=== PATIENT | female | born 1980 | race Two or more races ===

== ENCOUNTER 2016-09-26 12:00 | Emergency (ER) | payer MEDICAID ==
[~2016-09-26] VITALS: Ht 160 cm; Wt 72.6 kg
[2016-09-26 12:58] LABS: Basophils # (auto) 0 uL; Basophils % (auto) 0.6 % (0.0-2.0); Eosinophils # (auto) 0.1 uL; Hematocrit 39.1 % (36.0-46.0); Hemoglobin 13.4 g/dL (12.2-16.2); Lymphocytes # (auto) 2.1 uL; Mean Corpuscular Hemoglobin 29.5 pg (28.0-32.0); Mean Corpuscular Hgb Conc. 34.2 g/dL (32.0-36.0); Mean Corpuscular Volume 86.4 fL (80.0-100.0); Monocytes # (auto) 0.5 uL; Monocytes % (auto) 8.3 % (0.0-12.0); Neutrophils # (auto) 3.5 uL; Neutrophils % (auto) 56.1 % (37.0-80.0); Platelet Count (auto) 324 10^3/uL (140-450); Red Cell Distribution Width 13.1 % (11.6-16.0); White Blood Cell 6.3 10^3/uL (4.4-10.8)
[2016-09-26 13:14] VITALS: BP 105/66
[2016-09-26] MEDS ORDERED: HYDROcodone-ACET 5/325MG TAB PO ONE (13:15)
[2016-09-26 13:18] LABS: BUN/Creatinine Ratio 9.3; Calcium 8.5 mg/dL (8.5-10.1)
[2016-09-26 13:21] LABS: Bilirubin, Total 0.2 mg/dL (0.2-1.0); Total Protein 7.8 g/dL (6.4-8.2)
[2016-09-26 13:34] LABS: Urine Bilirubin Negative (Negative); Urine Blood Negative /uL (Negative); Urine Color Yellow (Yellow); Urine Glucose Normal (Normal); Urine Ketone Negative (Negative); Urine Nitrite Negative (Negative); Urine RBC <1 /hpf (0 - 4); Urine Squamous Epithelial Cell FEW /hpf (<5); Urine Urobilinogen Normal (Negative)
== END 2016-09-26 14:51 | disposition home or self-care (01) ==
LOC: ER 12:07
DX: N93.9 Abnormal uterine and vaginal bleeding, unspecified (principal); Z87.440 Personal history of urinary (tract) infections
CPT/HCPCS: 36415; 80053; 81001; 85025

== ENCOUNTER 2016-11-07 10:01 | Emergency (ER) | payer MEDICAID ==
[~2016-11-07] VITALS: Ht 157.5 cm; Wt 92.5 kg
[2016-11-07 10:22] VITALS: BP 140/102
[2016-11-07] MEDS ORDERED: KETOROLAC TROMETH 60MG/2ML VIAL IM ONE (11:30)
== END 2016-11-07 12:30 | disposition home or self-care (01) ==
LOC: ER 10:05
DX: G89.21 Chronic pain due to trauma (principal); M62.838 Other muscle spasm; Z87.440 Personal history of urinary (tract) infections
CPT/HCPCS: 96372; 99283; J1885

== ENCOUNTER 2017-08-05 15:27 | Emergency (ER) | payer MEDICAID ==
[~2017-08-05] VITALS: Ht 157.5 cm; Wt 89.4 kg
[2017-08-05 16:04] VITALS: BP 139/79
== END 2017-08-05 22:47 | disposition left against medical advice (07) ==
LOC: ER 15:32
DX: S33.5XXA Sprain of ligaments of lumbar spine, initial encounter (principal); J00 Acute nasopharyngitis [common cold]; X58.XXXA Exposure to other specified factors, initial encounter; Y93.89 Activity, other specified; Y92.89 Other specified places as the place of occurrence of the external cause; Y99.8 Other external cause status

== ENCOUNTER 2024-06-02 12:54 | Emergency (ER) | payer MEDICAID ==
[~2024-06-02] VITALS: Ht 160 cm; Wt 90.9 kg
[2024-06-02 12:55] VITALS: BP 147/56; RESP 18; O2SAT 98
[2024-06-02 13:40] LABS: Basophils # (auto) 0 10 ^3/uL (0-0.2); Basophils % (auto) 0.6 % (0.0-2.0); Eosinophils # (auto) 0.1 10 ^3/uL (0-0.8); Eosinophils % (auto) 2.1 % (0.0-7.0); Hematocrit 39.7 % (36.0-46.0); Hemoglobin 13.6 g/dL (12.2-16.2); Lymphocytes # (auto) 1.9 10 ^3/uL (0.4-5.4); Lymphocytes % (auto) 29.1 % (10.0-50.0); Mean Corpuscular Hemoglobin 30.8 pg (28.0-32.0); Mean Corpuscular Hgb Conc. 34.1 g/dL (32.0-36.0); Mean Corpuscular Volume 90.2 fL (80.0-100.0); Monocytes # (auto) 0.8 10 ^3/uL (0-1.3); Monocytes % (auto) 12.8 % (0.0-12.0); Neutrophils # (auto) 3.6 10 ^3/uL (1.6-8.6); Neutrophils % (auto) 55.4 % (37.0-80.0); Nucleated Red Blood Cells % 0.1 %; Platelet Count (auto) 278 10^3/uL (140-450); Red Blood Cells 4.41 10^6/uL (4.0-5.20); Red Cell Distribution Width 13.4 % (11.8-14.3); White Blood Cell 6.5 10^3/uL (4.4-10.8)
[2024-06-02 13:56] LABS: Alanine Aminotransferase 88 U/L (7-40); Albumin 4.6 g/dL (3.2-4.8); Alkaline Phosphatase 71 U/L (46-116); Anion Gap 5 (5-15); Aspartate Aminotransferase 45 U/L (13-40); BUN/Creatinine Ratio 14.5 (10.0-20.0); Bilirubin, Total 0.4 mg/dL (0.2-1.0); Blood Urea Nitrogen 11 mg/dL (9-23); Calcium 9.7 mg/dL (8.7-10.4); Carbon Dioxide 33 mmol/L (20-31); Chloride 105 mmol/L (98-107); Glucose 94 mg/dL (74-106); Magnesium 1.9 mg/dL (1.6-2.6); Potassium 3.7 mmol/L (3.5-5.1); Sodium 143 mmol/L (136-145); Total Protein 7.3 g/dL (5.7-8.2)
[2024-06-02 14:04] LABS: INR 0.99 (0.9-1.15); Partial Thromboplastin Time 26.5 SEC (24.5-34.5); Prothrombin Time 10.5 sec (9.3-11.8)
[2024-06-02] MEDS ORDERED: HYDROcodone-ACET 5/325MG TAB PO PRN (14:45)
[2024-06-02] MEDS ORDERED: ACETAMINOPHEN 325 MG TAB PO PRN (14:45)
[2024-06-02] MEDS ORDERED: HYDROmorphone HCL 2 MG/ML VL/or syr IV PRN (14:45)
[2024-06-02] MEDS ORDERED: NITROGLYCERIN 0.4 MG SL TAB SL PRN (14:45)
[2024-06-02] MEDS ORDERED: ONDANSETRON HCL 4 MG/2 ML VIAL IV PRN (14:45)
[2024-06-02] MEDS ORDERED: MORPHINE SULFATE INJ 2 MG/ml SYRG IV PRN (14:45)
[2024-06-02] MEDS ORDERED: DOCUSATE SOD 100 MG CAP PO PRN (14:45)
[2024-06-02 15:58] VITALS: PULSE 77
[2024-06-02] MEDS ORDERED: SODIUM CHLOR 0.9% PF (SALINE LOCK) 10ML VIAL/SYR IV SCH (22:00)
[2024-06-03] MEDS ORDERED: ENOXAPARIN SOD 40 MG/0.4 ML SYRINGE SC SCH (10:00)
== END 2024-06-02 16:49 | disposition left against medical advice (07) ==
LOC: ER 12:54 → EDBD 12:54 → ER 16:49
DX: R07.89 Other chest pain (principal); R53.1 Weakness; R20.0 Anesthesia of skin; I10 Essential (primary) hypertension; Z98.890 Other specified postprocedural states
CPT/HCPCS: 36415; 70450; 71045; 72131; 80053; 83735; 84484; 85025; 85610; 85730; 93005

== ENCOUNTER 2024-06-02 23:35 | Emergency (ER) | payer MEDICAID ==
[~2024-06-02] VITALS: Ht 157.5 cm; Wt 101.0 kg
[2024-06-03 03:30] VITALS: BP 136/80; PULSE 87; RESP 18; TEMP 98.7; O2SAT 99
[2024-06-03] MEDS: HYDROcodone-ACET 10/325MG TAB PO ONE (03:56)
== END 2024-06-03 04:21 | disposition home or self-care (01) ==
LOC: ER 23:35
DX: F41.9 Anxiety disorder, unspecified (principal); Z98.890 Other specified postprocedural states; Z88.8 Allergy status to other drugs, medicaments and biological substances

== ENCOUNTER 2024-06-29 16:40 | Emergency (ER) | payer MEDICAID ==
[~2024-06-29] VITALS: Ht 157.5 cm; Wt 94.3 kg
--- NOTE | 2024-06-29 18:19 | ED.PDOC ---
HPI Allergic reaction HPI Comments This is a 43-year-old female presents to the ED chief complaint rash. Patient states started 1 month ago after his see in the dentist as prescribed some antibiotics for her dental infection since she has been having a rash to her lower legs back of her neck in her face. Related symptoms of itchiness. She reports intermittent headaches as well. She denies fevers, nausea vomiting, dizziness, chest pain, shortness of breath. Chief Complaint: Rash Time Seen by MD: 17:50 Primary Care Provider: [facility] @ [facility] Reviewed Notes: Nurses Notes, Medications, Allergies Allergies: Coded Allergies: Shellfish Allergy (Verified Allergy, Unknown, 06/03/24) Home Meds Active Scripts Methylprednisolone (Medrol Dosepak) 4 Mg Blaine, 4 MG PO UD for 6 Days, #21 TAB UAD Prov:SOHAILANDREI Mcneal [facility] 06/29/24 Famotidine (PEPCID TABLET) 20 Mg Tb, 1 TAB PO BID for 6 Days, #12 TAB Prov:ANDREI SAUCEDA [facility] 06/29/24 Information Source: Patient Mode of Arrival: Ambulatory Past Medical History PAST MEDICAL HISTORY: Denies Surgical History: MEDICAL INSURANCE CLAIMS PROCESSOR History: Uterine Fibroids Family History Family History: Reviewed,noncontributory to illness, Unknown Social History Smoker: Non-Smoker Alcohol: Denies ETOH Use Drugs: Denies Drug Use Lives In: Home Constitutional: denies: chills, diaphoresis, fatigue, fever, malaise, sweats, weakness, others EENTM: denies: blurred vision, double vision, ear bleeding, ear discharge, ear drainage, ear pain, ear ringing, eye pain, eye redness, hearing loss, mouth pain, mouth swelling, nasal discharge, nose bleeding, nose congestion, nose pain, photophobia, tearing, throat pain, throat swelling, voice changes, others Respiratory: denies: cough, hemoptysis, orthopnea, SOB at rest, shortness of breath, SOB with excertion, stridor, wheezing, others Cardiovascular: denies: chest pain, dizzy spells, diaphoresis, Dyspnea on exertion, edema, irregular heart beat, left arm pain, lightheadedness, palpitations, PND, syncope, others Gastrointestinal: denies: abdomen distended, abdominal pain, blood streaked bowels, constipated, diarrhea, dysphagia, difficulty swallowing, hematemesis, melena, nausea, poor appetite, poor fluid intake, rectal bleeding, rectal pain, vomiting, others Genitourinary: denies: abnormal vagina bleeding, burning, dyspareunia, dysuria, flank pain, frequency, hematuria, incontinence, pain, , vagina discharge, urgency, others Neurological: reports: headache; denies: dizziness, fainting, left sided numbness, left sided weakness, numbness, paresthesia, pre-existing deficit, right sided numbness, right sided weakness, seizure, speech problems, tingling, tremors, weakness, others Musculoskeletal: denies: back pain, gout, joint pain, joint swelling, muscle pain, muscle stiffness, neck pain, others Integumetry: reports: rash; denies: bruises, change in color, change in hair/nails, dryness, laceration, lesions, lumps, wounds, others Hematologic/Lymphatic: denies: anemia, blood clots, easy bleeding, easy bruisin g, swollen glands, others Endocrine: denies: excessive hunger, excessive sweating, excessive thirst, excessive urination, flushing, intolerance to cold, intolerance to heat, unexplained weight gain, unexplained weight loss, others Psychiatric: denies: anxiety, bipolar disorder, depression, hopeless, panic disorder, schizophrenia, sleepless, suicidal, others Physical Exam General Appearance: No Apparent Distress, Normal HEENT: Normal ENT Inspection, Pharynx Normal, TMs Normal Neck: Full Range of Motion, Non-Tender Respiratory: Lungs Clear, No Respiratory Distress, Normal Breath Sounds Cardiovascular: No Murmur, Normal Peripheral Pulses, Regular Rate/Rhythm Breast Exam: Deferred Gastrointestinal: No Organomegaly, Non Tender, No Pulsatile Mass, Normal Bowel Sounds, Soft Genitalia: Deferred Pelvic: Deferred Rectal: Deferred Extremities: Normal capillary refill, Normal inspection, Normal range of motion, Non-tender, No pedal edema Musculoskeletal : Apperance: Normal Neurologic: Alert, telephone exchange operator II-XII nml as Tested, No Motor Deficits, Normal Affect, Normal Mood, No Sensory Deficits Cerebellar Function: Normal Reflexes: Normal Skin: Dry, Normal Color, Rash (Urticarial rash noted on left lower leg nap of neck face and back no noted open), Warm Lymphatic: No Adenopathy Was a procedure done? Was a procedure done?: No (Lesions or) Differential diagnosis (all) Differential Diagnosis: Angioedema X-Ray, Labs, Meds, VS Vital Signs Date Time Temp Pulse Resp B/P (MAP) Pulse Ox O2 Delivery O2 Flow Rate FiO2 06/29/24 18:20 98.0 80 18 120/84 (96) 98 98.0 06/29/24 18:20 80 18 98 Room Air 06/29/24 16:50 98.1 84 18 121/85 (97) 97 Current Medications Medications (Trade) Dose Ordered Sig/Abhishek Route Start Time Stop Time Status Last Admin Ketorolac Tromethamine (Toradol Injection) 60 mg ONCE ONCE IM 06/29/24 18:15 06/29/24 18:16 DC 06/29/24 18:32 Dexamethasone Sodium Phosphate (Decadron Injection) 10 mg ONCE ONCE IM 06/29/24 18:15 06/29/24 18:16 DC 06/29/24 18:31 X-Ray, Labs, Meds, VS Comment Patient given Toradol 60 mg IM for the headache Decadron 10 mg for the rash. We will script Medrol Dosepak and famotidine. Advised to rest increase p.o. fluids with electrolytes. Advised to follow up with her PCP in 2-3 days consider referral to an supervisor inspecting. ER return precautions given patient indicated understanding agrees with discharge plan of care. Time of 1ST Reevaluation: 19:00 Reevaluation 1ST: Improved Patient Education/Counseling: Diagnosis, Treatment, Prognosis, Need For Follow Up Family Education/Counseling: No Family Present Departure 1 Departure Time of Disposition: 19:00 Impression: Primary Impression: Allergic reaction Qualified Codes: T78.40XA - Allergy, unspecified, initial encounter Disposition: HOME / SELF CARE / HOMELESS Condition: Stable e-Prescriptions Methylprednisolone (Medrol Dosepak) 4 Mg Blaine 4 MG PO UD for 6 Days, #21 TAB UAD Prov: ANDREI SAUCEDAP 06/29/24 Famotidine (PEPCID TABLET) 20 Mg Tb 1 TAB PO BID for 6 Days, #12 TAB Prov: ANDREI SAUCEDAP 06/29/24 Discharged With: Self Critical Care Note Critical Care Time?: No Stability Stability form required: No ANDREI SAUCEDA Jun 29, 2024 18:19
[2024-06-29 18:20] VITALS: BP 120/84; PULSE 80; RESP 18; TEMP 98; O2SAT 98
[2024-06-29] MEDS: DexAMETHasone SOD PHOS 10MG/1ML VIAL INJ IM ONE (18:31)
[2024-06-29] MEDS: KETOROLAC TROMETH 60MG/2ML VIAL IM ONE (18:32)
[2024-06-29] MEDS ORDERED: FAMO20TA10 PO (18:40)
[2024-06-29] MEDS ORDERED: METH4PAK PO (18:40)
== END 2024-06-29 18:59 | disposition home or self-care (01) ==
LOC: ER 16:40
DX: T78.49XA Other allergy, initial encounter (principal); Z98.890 Other specified postprocedural states; Z79.899 Other long term (current) drug therapy; Z91.013 Allergy to seafood; X58.XXXA Exposure to other specified factors, initial encounter
CPT/HCPCS: 96372; 99284; J1100; J1885